=== PATIENT | female | born 1955 | race Caucasian/White ===

== ENCOUNTER 2022-07-30 06:34 | Day surgery (SDC) | payer MEDICARE ==
[~2022-07-30] VITALS: Ht 160 cm; Wt 91.4 kg
[2022-07-30] MEDS ORDERED: MIDAZolam 1 MG/ML 5ML VIAL ONE (06:42)
[2022-07-30] MEDS ORDERED: LIDOcaine Viscous 15ml cup ONE (06:42)
[2022-07-30] MEDS ORDERED: fentaNYL/PF 50MCG/1 ML 2ML syringe ONE (06:42)
[2022-07-30 06:45] VITALS: BP 131/98
[2022-07-30] MEDS ORDERED: METF-900 PO (07:08)
[2022-07-30] MEDS ORDERED: ATOR40TA PO (07:08)
[2022-07-30] MEDS ORDERED: HYDR25TA5 PO (07:08)
[2022-07-30] MEDS ORDERED: DULA1.5P (07:08)
[2022-07-30] MEDS ORDERED: LOSA100T57 PO (07:08)
[2022-07-30 08:00] VITALS: BP 123/71
[2022-07-30 08:10] VITALS: BP 117/71
[2022-07-30 08:20] VITALS: BP 119/74
[2022-07-30 08:30] VITALS: BP 120/78
== END 2022-07-30 08:35 | disposition home or self-care (01) ==
LOC: GI LAB 06:34
PROVIDERS: ATTEND Surgery
DX: K44.9 Diaphragmatic hernia without obstruction or gangrene (principal); K29.50 Unspecified chronic gastritis without bleeding; K20.80 Other esophagitis without bleeding; E11.9 Type 2 diabetes mellitus without complications; I10 Essential (primary) hypertension; Z87.891 Personal history of nicotine dependence; Z79.84 Long term (current) use of oral hypoglycemic drugs; Z79.899 Other long term (current) drug therapy
CPT/HCPCS: 43239; 99153; G0500; J2250; J3010; J7030; Z7512; 99152; A4620

== ENCOUNTER 2022-09-08 05:30 | Observation (INO) | payer MEDICARE ==
[2022-09-01 14:55] LABS: BASOPHILS % (AUTO) 0.3 % (0-1); EOSINOPHILS # (AUTO) 0.3 X10'3 (0-0.9); EOSINOPHILS % (AUTO) 2.8 % (0-6); LYMPHOCYTES # (AUTO) 1.8 X10'3 (1.1-4.8); LYMPHOCYTES % (AUTO) 20.1 % (21-51); MEAN CORPUSCULAR HEMOGLOBIN 30.2 PG (27.0-31.0); MEAN CORPUSCULAR HGB CONC 34.5 g/dL (33.0-36.5); MEAN CORPUSCULAR VOLUME 87.5 FL (78-98); MONOCYTES # (AUTO) 0.6 X10'3 (0-0.9); MONOCYTES % (AUTO) 6.5 % (2-12); NEUTROPHILS # (AUTO) 6.4 X10'3 (1.8-7.7); NEUTROPHILS % (AUTO) 70.3 % (42-75); PRE OP HEMATOCRIT 36.4 % (35.0-45.0); PRE OP HEMOGLOBIN 12.5 g/dL (12.0-16.0); PRE OP PLATELET COUNT 273 X10'3 (140-440); RED BLOOD COUNT 4.15 X10'6 (4.20-5.60); RED CELL DISTRIBUTION WIDTH 13.3 % (11.5-14.5)
[2022-09-01 14:56] LABS: ALBUMIN 3.9 G/DL (3.4-5.0); ALKALINE PHOSPHATASE 99 IU/L (46-116); BLOOD UREA NITROGEN 35 MG/DL (7-18); BUN/CREATININE RATIO 39.3 (10.0-20.0); CALCIUM 9.4 MG/DL (8.5-10.1); CHLORIDE 101 MMOL/L (99-107); CREATININE 0.89 MG/DL (0.40-0.90); PRE OP ALT 26 U/L (30-65); PRE OP ANION GAP 10 (8-16); PRE OP AST 15 U/L (10-37); PRE OP BILIRUB, TOTAL 0.4 MG/DL (0.0-1.0); PRE OP GLUCOSE 144 MG/DL (70-104); PRE OP SODIUM 140 MMOL/L (135-145); TOTAL CARBON DIOXIDE 29.5 MMOL/L (24-32); TOTAL PROTEIN 7.9 G/DL (6.4-8.2); eGFR 63 ML/MIN
[2022-09-01 14:58] LABS: PRE OP POTASSIUM 3.1 MMOL/L (3.4-5.1)
[2022-09-08] VITALS (29 sets, daily range): BP systolic 104–133; BP diastolic 38–86
[~2022-09-08] VITALS: Ht 160 cm; Wt 92.4 kg
[~2022-09-08 05:30] MED LIST: ATOR40TA PO; DULA1.5P SQ; HYDR25TA5 PO; LOSA100T57 PO; METF-900 PO; cefazolin 2gm/D5W 100mL 100 ML IV ONE; famotidine 20mg tablet PO ONE; ringers solution, lacted 1,000 ML IV SCH
[2022-09-08] MEDS ORDERED: LIDOcaine 1% 30ml preserv. free vial ONE (06:36)
[2022-09-08] MEDS ORDERED: BUPIVAcaine/PF 2.5 mg/ml (0.25%) 30ml vial ONE (06:36)
[2022-09-08 06:58] LABS: ISTAT CREATININE 0.9 mg/dL (0.6-1.1); ISTAT HGB 12.2 g/dl (12.0-16.0); ISTAT IONIZED CALCIUM 1.15 mmol/L (1.03-1.32); ISTAT K 3.7 mmol/L (3.5-5.1); POC BUN/CREATININE RATIO 35.6 (6.6-38.0)
[2022-09-08] MEDS ORDERED: sevoflurane 250ml liquid IH ONE (07:26)
[2022-09-08] MEDS ORDERED: fentaNYL/PF 50MCG/1 ML 2ML syringe ONE (07:37)
[2022-09-08] MEDS ORDERED: MIDAZolam 1 MG/ML 5ML VIAL ONE (07:38)
[2022-09-08] MEDS ORDERED: dexamethasone sod phosphate 4mg/ml inj. ONE (07:55)
[2022-09-08] MEDS ORDERED: propofol inj 20 ML IV ONE (07:55)
[2022-09-08] MEDS ORDERED: rocuronium 10mg/ml inj IV ONE (07:55)
[2022-09-08] MEDS ORDERED: ondansetron/PF 4mg/2ml inj ONE (08:01)
[2022-09-08] MEDS ORDERED: fentaNYL /PF 50mcg/ml 5ml ampule ONE (08:01)
[2022-09-08] MEDS ORDERED: LIDOcaine 2% (20mg/ml) 5ml vial ONE (08:05)
[2022-09-08] MEDS ORDERED: albuterol 60 PUFF/8GM Inhaler (90mcg/1 puff) IH ONE (08:05)
[2022-09-08] MEDS ORDERED: ePHEDrine 50MG/ML INJ. ONE (08:08)
[2022-09-08] MEDS ORDERED: morphine 4 MG/ML inj SYRINge IV PRN (10:05)
[2022-09-08] MEDS ORDERED: ondansetron/PF 4mg/2ml inj IV PRN ×2 (10:05→10:35)
[2022-09-08] MEDS ORDERED: proCHLORperazine 10 MG/2 ml inj IV PRN (10:05)
[2022-09-08] MEDS ORDERED: morphine 2 MG/ML inj. syringe IV PRN (10:05)
[2022-09-08] MEDS ORDERED: meperidine/PF 25mg/ml syringe IV PRN ×3 (10:05)
[2022-09-08] MEDS ORDERED: ringers solution, lacted 1,000 ML IV SCH (10:05)
[2022-09-08] MEDS ORDERED: albumin (Human) 5% 250ml 250 ML IV ONE (10:16)
[2022-09-08] MEDS ORDERED: acetaminophen 1,000mg/100ml IV 100 ML IV ONE (10:16)
[2022-09-08] MEDS: ringers solution, lacted 1,000 ML IV SCH ×2 (10:35→20:35)
[2022-09-08] MEDS ORDERED: naloxone 0.4 mg/ml inj IV PRN (10:35)
[2022-09-08] MEDS ORDERED: normal saline 1000ml 1,000 ML IV SCH (10:35)
--- NOTE | 2022-09-08 10:40 | NUR ---
Received from OR via , accompanied by Anesthesiologist TRIP AND OR NURSE and report given by Anesthesiolgist. PT IS DROWSY YET RESPONDS TO VERBAL STIMULI. PT DENIES PAIN OR DISCOMFORT. 20G TO LT WRIST; PACU LR INFUSING. 3 LAP SITES UPPER ABDOMEN WITH DERMABOND; ALBERT. NILO IN PLACE; PATENT. QF=[id number] VSS Addendum: 09/08/22 at 1110 by Germaine Shelley RN Amended: Links added.
[2022-09-08] MEDS ORDERED: glucagon, human recombinant 1mg kit SUBCUT PRN (10:45)
[2022-09-08] MEDS ORDERED: dextrose 50%-water 50ml dispensing syringe IV PRN ×2 (10:45)
[2022-09-08] MEDS ORDERED: MESSAGE TO PHARMACY PO ONE (10:45)
[2022-09-08] MEDS ORDERED: ipratropium/albuterol 3ml nebule NEB PRN (10:45)
[2022-09-08] MEDS ORDERED: DEXTROSE 15 GM of carb/4 tabs (each vial/BOTTLE has 4 tablets) PO PRN ×2 (10:45)
[2022-09-08] MEDS ORDERED: insulin Lispro (HumaLOG) vial - multi-dose SQ SCH (10:45)
[2022-09-08] MEDS: albuterol 2.5 MG/3 ML nebule NEB SCH ×3 (11:00→19:53)
[2022-09-08] MEDS ORDERED: ipratropium/albuterol 3ml nebule ONE (11:22)
[2022-09-08] MEDS: HYDROmorph/NS 0.2 mg/ml PCA 100 ML IV SCH ×7 (12:28→23:00)
--- NOTE | 2022-09-08 13:50 | NUR ---
PATIENT TAKEN TO SURGICAL FLOOR ROOM WITH ALL BELONGINGS AND HOOKED UP TO ALL MONITORS IN ROOM AND REPORT GIVEN TO RN WHO HAS TAKEN OVER PATIENT CARE. Addendum: 09/08/22 at 1438 by Germaine Shelley RN Amended: Links added.
--- NOTE | 2022-09-08 18:13 | NUR ---
Gave report to Vickie YEE.
[2022-09-08] MEDS ORDERED: insulin glargine (Lantus) pen - multi-dose SQ SCH (21:00)
--- NOTE | 2022-09-08 23:17 | NUR ---
Charting by Mary GUNTER reviewed by Gilberto Ariza RN
[2022-09-09] MEDS: HYDROmorph/NS 0.2 mg/ml PCA 100 ML IV SCH ×4 (01:00→06:54)
[2022-09-09 02:30] VITALS: BP 114/70
[2022-09-09 06:00] VITALS: BP 120/67
[2022-09-09] MEDS: ringers solution, lacted 1,000 ML IV SCH (06:35)
--- NOTE | 2022-09-09 06:42 | NUR ---
Patient in room [facility] 344. I have received report from YEE JETER and had the opportunity to ask questions and assume patient care.
[2022-09-09] MEDS: albuterol 2.5 MG/3 ML nebule NEB SCH ×3 (07:15→15:39)
[2022-09-09] MEDS ORDERED: atorvastatin 20mg tablet PO SCH (08:00)
[2022-09-09] MEDS ORDERED: losartan 50mg tablet PO SCH (08:00)
[2022-09-09] MEDS ORDERED: HYDROchlorothiazide 25mg tablet PO SCH (08:00)
[2022-09-09] MEDS ORDERED: enoxaparin 40mg/0.4ml syringe SQ SCH (08:00)
[2022-09-09 08:06] LABS: ALBUMIN 3.5 G/DL (3.4-5.0); ANION GAP 10 (8-16); BLOOD UREA NITROGEN 21 MG/DL (7-18); CALCIUM 8.7 MG/DL (8.5-10.1); CHLORIDE 101 MMOL/L (99-107); CREATININE 0.84 MG/DL (0.40-0.90); GLUCOSE 119 MG/DL (70-104); POTASSIUM 3.5 MMOL/L (3.5-5.1); SODIUM 139 MMOL/L (135-145); TOTAL CARBON DIOXIDE 28.1 MMOL/L (24-32); eGFR 68 ML/MIN
--- NOTE | 2022-09-09 09:08 | NUR ---
Spoke to Dr. Forbes regarding patient's last PLT count was 273 on 09/[address] Forbes ok to give lovenox.
[2022-09-09] MEDS ORDERED: PCA WASTE DOCUMENTATION 1 MG ML MC SCH (09:45)
[2022-09-09] MEDS: oxyCODONE/APAP 5-325mg tablet PO PRN ×2 (11:43→15:59)
[2022-09-09 11:49] VITALS: BP 124/59
--- NOTE | 2022-09-09 12:20 | NUR ---
Nutrition Consult "post-césar diet": Pt s/p césar fundoplication this admit per EMR. Pt seen by RD for written/verbal post-césar diet progression ed w/ Ensure ONS coupons and RD contact information provided. Pt reports no further nutrition questions/concerns; RD encouraged pt to contact dietitian's office if so. Addendum: 09/09/[address] Amended: Links added.
[2022-09-09] MEDS ORDERED: PER5325T PO (13:39)
--- NOTE | 2022-09-09 15:17 | NUR ---
Charting by Radha GUNTER reviewed by Gilberto Ariza RN
--- NOTE | 2022-09-09 15:30 | NUR ---
Patient verbalized understanding of dc teaching. All questions answered to best of ability. Patient ready for dc and waiting for her transportation. Patient aware prescription at [facility].
--- NOTE | 2022-09-09 17:52 | NUR ---
Patient dc'd with all personal belongings escorted out in wheelchair accompanied by x1 staff.
== END 2022-09-09 17:55 | disposition home or self-care (01) ==
LOC: PAS 05:30 → PAS IN 10:40 → SUR 3N 10:41
PROVIDERS: ADMIT Surgery; ATTEND Surgery
DX: K44.9 Diaphragmatic hernia without obstruction or gangrene (principal); E11.9 Type 2 diabetes mellitus without complications; I10 Essential (primary) hypertension; E78.5 Hyperlipidemia, unspecified; E66.9 Obesity, unspecified; Z79.84 Long term (current) use of oral hypoglycemic drugs; Z79.899 Other long term (current) drug therapy; Z90.711 Acquired absence of uterus with remaining cervical stump
CPT/HCPCS: 36415; 43282; 71045; 80047; 80048; 80053; 82948; 85025; 94640; 94760; 96365; 96366; 96372; 96375; C1758; C1781; G0378; J0131; J0690; J1100; J1170; J1650; J2175; J2250; J2405; J2704; J3010; J3490; J7030; J7120; P9045; A4615; A4618; J1815

== ENCOUNTER 2024-05-03 13:03 | Outpatient (CLI) | payer MEDICARE ==
[~2024-05-03 13:03] MED LIST changes: -LOSA100T57 PO; +LOSA100T58 PO; +PER5325T PO; -cefazolin 2gm/D5W 100mL 100 ML IV ONE; -famotidine 20mg tablet PO ONE; -ringers solution, lacted 1,000 ML IV SCH
[2024-05-03] MEDS ORDERED: barium sulfate 340gm for oral suspension 1 BOTTLE SUSP.RECON PO ONE (14:00)
== END 2024-05-03 23:59 | disposition home or self-care (01) ==
LOC: RAD 13:03
PROVIDERS: ATTEND Nurse Practitioner Family
DX: K44.9 Diaphragmatic hernia without obstruction or gangrene (principal)
CPT/HCPCS: 74220